=== PATIENT | female | born 1995 | race Caucasian/White ===

== ENCOUNTER 2018-02-22 00:55 | Emergency (ER) | payer SELFPAY ==
[2018-02-22 01:52] VITALS: BP 125/85
[2018-02-22 01:57] LABS: PLATELET COUNT 330 10^3/uL (150-400)
--- NOTE | 2018-02-22 02:09 | EDPHY ---
H & P Stated Complaint: abdominal cramping and heavy menses Time Seen by Provider: 02/22/18 01:02 HPI/ROS: CC: This 22-year-old female presents to the emergency department tonight with her with complaints of lower abdominal cramping all day today. Her menstrual period started yesterday. Normally she will have a little bit of pain before her period starts and she will take some ibuprofen and the pain will go away for the rest of her period. Today the pain was persistent. It is 10/10, waxing and waning. She describes it as sharp, squeezing, and cramping and made her nauseated most of the day. It radiates to her low back. She took Tylenol earlier in the day and Midol at 11:30 a.m. last evening without significant relief. Her last menstrual period was 6 weeks ago. She states she has had irregular periods for 2 years and has had fairly complete workup in the past including blood tests and an ultrasound. She thinks this may have been approximately 6 months ago and included a normal PAP Smear. A home test last week was negative. She is 0 para 0. She denies fever, chills , lightheadedness, dysuria or hematuria. No history of STI. No recent illness. No family history of female reproductive cancer. REVIEW OF SYSTEMS: Constitutional: No fever, no chills. Eyes: No discharge. ENT: No sore throat. Respiratory: No cough, no shortness of breath. Cardiac: No chest pain, no palpitations. Gastrointestinal: No vomiting. Genitourinary: No hematuria. Musculoskeletal: No leg pain or swelling. Skin: No rashes. Neurological: No headache. No numbness, tingling, or weakness. Source: Patient, Family () Exam Limitations: No limitations - Personal History LMP (Females 10-55): Now - Medical/Surgical History PMH: PMH: Denied PSH: ACL repair FH: HTN, DM NKDA Meds: Denied Hx Asthma: No Hx Chronic Respiratory Disease: No Hx Diabetes: No Hx Cardiac Disease: No Hx Renal Disease: No Hx Cirrhosis: No Hx Alcoholism: No Hx HIV/AIDS: No Hx Splenectomy or Spleen Trauma: No Other PMH: Denies medical issues. ACL repair. No PCP - Family History Significant Family History: Diabetes, Hypertension - Social History Smoking Status: Current some day smoker Additional Social History: Patient vapes, no alcohol, uses marijuana edibles. . started new job and they cancelled their health insurance just a few days ago and have not secured new insurance. - Physical Exam Exam: General Appearance: Alert, mild distress. Eyes: Pupils equal and round no pallor or injection. ENT, Mouth: Mucous membranes are moist. Respiratory: There are no retractions, lungs are clear to auscultation. Cardiovascular: Regular rate and rhythm. Gastrointestinal: Abdomen is soft, tenderness to palpation over suprapubic area (mild), RLQ (moderate) and RUQ (most significant by exam). No masses, bowel sounds normal. : Declines pelvic exam. Neurological: Awake and alert, sensory and motor exams grossly normal. Skin: Warm and dry, no rashes. Musculoskeletal: Neck is supple nontender. Extremities are symmetrical, full range of motion. Psychiatric: Patient is oriented X 3, there is no agitation. DIFFERENTIAL DIAGNOSIS: After history and physical exam differential diagnosis was considered for but not limited to: dysmenorrhea, menometrorrhagia, Dysfunctional uterine bleeding, uterine fibroids, STI, ovarian cyst, ovarian torsion, appendicitis, cholecystitis. Constitutional: Initial Vital Signs Temperature (C) 98.4 F 02/22/18 01:02 Heart Rate 82 02/22/18 01:02 Respiratory Rate 18 02/22/18 01:02 Blood Pressure 147/81 H 02/22/18 01:02 O2 Sat (%) 95 02/22/18 01:02 O2 Delivery Mode Room Air Allergies/Adverse Reactions: No Known Allergies Allergy (Verified 02/22/18 00:57) Home Medications: Medication Instructions Recorded NK [No Known Home Meds] 02/22/18 Medical Decision Making ED Course/Re-evaluation: The patient was seen and examined. Vital signs and prior record reviewed. A CBC showed a slightly elevated white blood cell count 12.5 with a normal hemoglobin and hematocrit. Her orthostatic vital signs were normal. Chemistry panel was normal. Beta qualitative HCG was negative. Patient was given 15 mg of Toradol for pain. She declined a pelvic exam. After discussions of the pros and cons of imaging including ultrasound and CT scan of the abdomen and pelvis, the patient and her decided she would have a CT scan of the abdomen and pelvis which would rule out appendicitis and give some information on the gallbladder and ovary. However prior to the exam, they changed their minds and preferred to go home and monitor the situation. The understand that she should come back immediately should the pain worsen, persist more than a couple of hours especially in the right lower abdomen, if she has fever, chills , vomiting or any other concerns. Otherwise, she should follow up with her previously established lead inspector in the next 1-2 days. She was also given a referral for a primary care provider at the [facility]. - Data Points Laboratory Results: Laboratory Results 02/22/18 01:45 02/22/18 01:45 02/22/18 02/22/18 02/22/18 01:45 01:45 01:45 WBC 12.25 10^3/uL H 10^3/uL (3.80-9.50) RBC 5.38 10^6/uL H 10^6/uL (4.18-5.33) Hgb 15.1 g/dL g/dL (12.6-16.3) Hct 44.4 % % (38.0-47.0) MCV 82.5 fL fL (81.5-99.8) MCH 28.1 pg pg (27.9-34.1) MCHC 34.0 g/dL g/dL (32.4-36.7) RDW 12.5 % % (11.5-15.2) Plt Count 330 10^3/uL 10^3/uL (150-400) MPV 9.5 fL fL (8.7-11.7) Neut % (Auto) 66.3 % % (39.3-74.2) Lymph % (Auto) 24.7 % % (15.0-45.0) [place] % (Auto) 7.8 % % (4.5-13.0) Eos % (Auto) 0.6 % % (0.6-7.6) Baso % (Auto) 0.2 % L % (0.3-1.7) Nucleat RBC Rel Count 0.0 % % (0.0-0.2) Absolute Neuts (auto) 8.12 10^3/uL H 10^3/uL (1.70-6.50) Absolute Lymphs (auto) 3.03 10^3/uL H 10^3/uL (1.00-3.00) Absolute Monos (auto) 0.95 10^3/uL H 10^3/uL (0.30-0.80) Absolute Eos (auto) 0.07 10^3/uL 10^3/uL (0.03-0.40) Absolute Basos (auto) 0.03 10^3/uL 10^3/uL (0.02-0.10) Absolute Nucleated RBC 0.00 10^3/uL 10^3/uL (0-0.01) Immature Gran % 0.4 % % (0.0-1.1) Immature Gran # 0.05 10^3/uL 10^3/uL (0.00-0.10) Sodium 140 mEq/L mEq/L (135-145) Potassium 3.9 mEq/L mEq/L (3.5-5.2) Chloride 100 mEq/L mEq/L (97-110) Carbon Dioxide 26 mEq/l mEq/l (22-31) Anion Gap 14 mEq/L mEq/L (8-16) BUN 14 mg/dL mg/dL (7-23) Creatinine 1.0 mg/dL mg/dL (0.6-1.0) Estimated GFR > 60 Glucose 108 mg/dL H mg/dL (70-100) Calcium 9.6 mg/dL mg/dL (8.5-10.4) Total Bilirubin 0.4 mg/dL mg/dL (0.1-1.4) Conjugated Bilirubin 0.3 mg/dL mg/dL (0.0-0.5) Unconjugated Bilirubin 0.1 mg/dL mg/dL (0.0-1.1) AST 16 IU/L IU/L (14-46) ALT 33 IU/L IU/L (9-52) Alkaline Phosphatase 79 IU/L IU/L (38-126) Total Protein 8.1 g/dL g/dL (6.3-8.2) Albumin 4.5 g/dL g/dL (3.5-5.0) Lipase 130 IU/L IU/L (23-300) Beta HCG, Qual NEGATIVE Medications Given: Discontinued Medications Ketorolac Tromethamine (Toradol) 15 mg IVP EDNOW ONE Stop: 02/22/18 02:25 Last Admin: 02/22/18 02:29 Dose: 15 mg Departure - Departure Disposition: Home, Routine, Self-Care Clinical Impression: Abdominal pain Qualifiers: Abdominal location: lower abdomen, unspecified Qualified Code(s): R10.30 - Lower abdominal pain, unspecified Condition: Good Instructions: Dysmenorrhea (ED), Acute Abdominal Pain (ED) Additional Instructions: Return to the ER immediately if increased pain, pain persistent for more than 1 an hour, nausea and/or vomiting, fever, if you change your mind about the imaging studies we discussed or any other concerns. Otherwise, follow up with your DENTAL CERAMIST or Primary Care Provider in the next 1-2 days. Consider ibuprofen 600mg every 6 hours as needed for pain. Or acetaminophen as directed on the packaging. Referrals: [facility],. [Clinic] - 1-2 days without fail
[2018-02-22] MEDS ORDERED: KETOROLAC 15 MG/1 ML SDV IVP ONE (02:24)
[2018-02-22] MEDS ORDERED: IOPAMIDOL (ISOVUE-300) 100 ML BTL ONE (02:32)
== END 2018-02-22 02:51 | disposition home or self-care (01) ==
LOC: CED 00:55
DX: R10.30 Lower abdominal pain, unspecified (principal); F17.200 Nicotine dependence, unspecified, uncomplicated
CPT/HCPCS: 80048-PO; 80076-PO; 83690-PO; 84703-PO; 85025-PO; 96374; J1885; Q9967